=== PATIENT | female | born 1980 | race American Indian/Alaskan Native ===

== ENCOUNTER 2017-10-08 23:20 | Emergency (ER) | payer MEDICARE ==
[2017-10-09] MEDS ORDERED: REGLAN PO ONE (01:56)
[2017-10-09 02:12] LABS: Basophils # (Auto) 0.1 K/mm3 (0.0-0.1); Eosinophils # (Auto) 0.3 K/mm3 (0.0-0.4); Eosinophils % (Auto) 3.2 % (0.0-4.3); Hematocrit 27.2 % (30.3-42.9); Lymphocytes # (Auto) 4.2 K/mm3 (1.2-5.4); Lymphocytes % (Auto) 43.4 % (13.4-35.0); Mean Corpuscular HGB Conc 33 % (30-34); Mean Corpuscular Volume 76 fl (79-97); Monocytes # (Auto) 0.8 K/mm3 (0.0-0.8); Monocytes % (Auto) 8.2 % (0.0-7.3); Platelet Count 256 K/mm3 (140-440); Red Blood Count 3.57 M/mm3 (3.65-5.03)
[2017-10-09 02:22] LABS: Mean Corpuscular Hemoglobin 25 pg (28-32); Red Cell Distribution Width 21.8 % (13.2-15.2)
--- NOTE | 2017-10-09 03:26 | Emergency Department Report ---
HPI - General Chief Complaint: Extremity Problem,Nontraumatic Time Seen by Provider: 10/09/17 01:36 - HPI HPI: 37-year-old female presents to the emergency department from [facility] with a complaint of a few days of swelling to the bilateral feet and ankles, as well as some bilateral leg pain. Patient has a history of hypertension, diabetes, hypothyroidism and has per his history of DVT. She used to be on Xarelto. The patient actually overdosed on this medication a few days ago and that is what led her to being an involuntary admission at [facility]. She denies any skin color change, rash or any recent trauma. She has not taken anything and was not given anything for her symptoms prior to presentation today. ED Past Medical Hx - Past Medical History Previous Medical History?: Yes Hx Hypertension: Yes Hx Diabetes: Yes Hx Deep Vein Thrombosis: Yes (left leg) Hx Pulmonary Embolism: Yes - Surgical History Past Surgical History?: Yes Hx Cholecystectomy: Yes Additional Surgical History: tubal ligation, x3 - Social History Smoking Status: Never Smoker Substance Use Type: None - Medications Home Medications: Home Medications Medication Instructions Recorded Confirmed Last Taken Type Benzocaine/Menthol [Sore Throat 1 each MM 10/09/17 Unknown History Lozenges] Benztropine [Cogentin] 1 mg PO QID 10/09/17 10/09/17 Unknown History Benztropine [Cogentin] 2 mg PO BID 10/09/17 10/09/17 10/08/17 History Diazepam 1 tab PO HS 10/09/17 10/09/17 10/08/17 History Divalproex Sodium [Depakote] 500 mg PO BID 10/09/17 10/09/17 10/08/17 History Eucalyptus/Menthol [Cough Drops] 1 each MM 10/09/17 Unknown History Haloperidol Lactate [Haldol] 5 mg IM TID 10/09/17 10/09/17 Unknown History Haloperidol [Haldol] 5 mg PO TID 10/09/17 10/09/17 Unknown History Ibuprofen [Motrin 800 MG tab] 10/09/17 Unknown History LORazepam [Ativan] 1 mg PO TID PRN 10/09/17 10/09/17 Unknown History Levothyroxine [Synthroid] 100 mcg PO QAM 10/09/17 10/09/17 10/08/17 History Lisinopril [Zestril] 10 mg PO DAILY 10/09/17 10/09/17 10/08/17 History Loratadine [Claritin] 10 mg PO DAILY PRN 10/09/17 10/09/17 Unknown History Milk of Magnesia 30 ml PO DAILY PRN 10/09/17 10/09/17 Unknown History Mylanta 10/09/17 Unknown History OLANzapine (NF) [ZyPREXA (NF)] 5 mg IM Q8HR 10/09/17 10/09/17 Unknown History Olanzapine [Zyprexa] 5 mg PO TID 10/09/17 10/09/17 Unknown History Promethazine HCl [Promethazine INJ] 25 mg IJ 10/09/17 Unknown History Promethazine [Phenergan TAB] 25 mg PO Q6H PRN 10/09/17 10/09/17 Unknown History Rivaroxaban [Xarelto] 20 mg PO QDAY 10/09/17 10/09/17 10/08/17 History Sertraline [Zoloft] 200 mg PO QDAY 10/09/17 10/09/17 10/08/17 History Ziprasidone Mesylate [Geodon] 20 mg IM Q8HR PRN MDD 100mg 10/09/17 10/09/17 Unknown History Ziprasidone [Geodon] 20 mg PO Q8HR PRN 10/09/17 10/09/17 Unknown History cloNIDine [Catapres] 0.1 mg PO Q8HR PRN 10/09/17 10/09/17 Unknown History diphenhydrAMINE [Benadryl] 50 mg IM Q4HR PRN 10/09/17 10/09/17 Unknown History hydrOXYzine PAMOATE [Vistaril] 1 tab PO Q8HR PRN MDD 100mg 10/09/17 10/09/1712/17 History traZODone [Desyrel] 50 mg PO QHS 10/09/17 10/09/17 Unknown History ED Review of Systems ROS: Stated complaint: LEG PAIN/SWELLING Other details as noted in HPI Comment: All other systems reviewed and negative Constitutional: denies: chills, fever Eyes: denies: eye pain, eye discharge, vision change ENT: denies: ear pain, throat pain Respiratory: denies: cough, shortness of breath, wheezing Cardiovascular: edema. denies: chest pain, palpitations Gastrointestinal: denies: abdominal pain, nausea, diarrhea Genitourinary: denies: urgency, dysuria, discharge Musculoskeletal: joint swelling, arthralgia, myalgia Skin: denies: rash, lesions Neurological: denies: headache, weakness, paresthesias Physical Exam - Physical Exam Vital Signs: Vital Signs 10/08/17 23:49 Temperature 97.7 F Pulse Rate 89 Respiratory 18 Rate Blood Pressure 127/75 O2 Sat by Pulse 100 Oximetry Physical Exam: GENERAL: The patient is well-developed well-nourished. HENT: Normocephalic. Atraumatic. Patient has moist mucous membranes. EYES: Extraocular motions are intact. Pupils equal reactive to light bilaterally. Trachea NECK: Supple. Trachea is midline. CHEST/LUNGS: Clear to auscultation. There is no respiratory distress noted. HEART/CARDIOVASCULAR: Regular. There is no tachycardia. There is no murmur. ABDOMEN: Abdomen is soft, nontender. Patient has normal bowel sounds. There is no abdominal distention. SKIN: Skin is warm and dry. There may be some mild nonpitting swelling of the feet and ankles but nothing appreciable in the rest of the lower legs. NEURO: The patient is awake, alert, and oriented. The patient is cooperative. The patient has no focal neurologic deficits. The patient has normal speech. MUSCULOSKELETAL: Mild tenderness to palpation to the bilateral lower extremities. There is no limitation range of motion. There is no evidence of acute injury. ED Course Vital Signs 10/08/17 23:49 Temperature 97.7 F Pulse Rate 89 Respiratory 18 Rate Blood Pressure 127/75 O2 Sat by Pulse 100 Oximetry ED Medical Decision Making - Lab Data Result diagrams: 10/09/17 01:59 10/09/17 01:59 - Radiology Data Radiology results: report reviewed Bilateral lower extremity venous Doppler negative for DVT. - Medical Decision Making This patient coming from a psych facility with complaint of some pain to the bilateral lower extremities and some mild swelling to the feet and ankles. She does have a history of previous DVT. Her story is slightly confusing as she says she has not been taking her anticoagulant but also says that the reason she is at the psych facility is because she attempted to overdose on her anticoagulant. There is a little bit of discomfort to palpation towards the bilateral calf but there is no appreciable swelling or any skin color changes this area. Mild swelling to the feet and ankles. Labs are otherwise unremarkable. Vital signs stable. She has no complaints of shortness of breath. Vital signs stable including being afebrile and no tachycardia or hypoxia. The patient was signed out to my colleague in the morning to follow the lower extremity venous Doppler done that ended up resulting as negative for DVT. She was discharged back to the psychiatric facility to be restarted on her anticoagulant at a normal dosing. - Differential Diagnosis myalgia, DVT, venous stasis, CHF Critical Care Time: No Critical care attestation.: If time is entered above; I have spent that time in minutes in the direct care of this critically ill patient, excluding procedure time. ED Disposition Clinical Impression: Leg pain Qualifiers: Laterality: bilateral Qualified Code(s): M79.604 - Pain in right leg; M79.605 - Pain in left leg Disposition: DC/TX-65 PSY HOSP/PSY UNIT Is pt being admited?: No Condition: Good Instructions: Arthralgia (ED) Additional Instructions: Continue current outpatient medications. Follow up with the primary care doctor for incidental nonemergent laboratory abnormalities. Follow up within the next month. Return to the ER right away with fevers, chills, lethargy, irritability, projectile vomiting, change in mental status, confusion, inability to tolerate liquid feeds. Referrals: PRIMARY CAREMD [Primary Care Provider] - 3-5 Days ERAN MUNOZ MD [Staff Physician] - 3-5 Days
[2017-10-09 04:07] LABS: BUN/Creatinine Ratio 23; Blood Urea Nitrogen 9 mg/dL (7-17); Calcium 9.9 mg/dL (8.4-10.2); Hemolysis Index 10
[2017-10-09] MEDS ORDERED: TORADOL IM ONE (04:16)
--- NOTE | 2017-10-09 10:31 | Event Note ---
Date: 10/09/17 Initial ultrasound results as negative for DVT. Laboratory studies reviewed, and are essentially unremarkable. Incidental thyroid abnormality appreciated, incidental minor anemia appreciated, the patient can follow up with a primary care doctor for this as an outpatient. Her complaint is resolved lower extremity edema and pain. Compartments are soft with appropriate pulses. Patient has had an adequate and thorough and appropriate medical screening exam , she has been in the ER for hours without clinical to conversation, and there does not appeared to be an emergency medical condition at this time and she can follow-up as an outpatient. Vital Signs 10/08/17 10/09/17 10/09/17 23:49 04:40 06:38 Temperature 97.7 F Pulse Rate 89 Respiratory 18 16 18 Rate Blood Pressure 127/75 Blood Pressure [Left] O2 Sat by Pulse 100 100 Oximetry 10/09/17 10/09/17 07:20 07:51 Temperature 97.6 F Pulse Rate 84 Respiratory 18 18 Rate Blood Pressure Blood Pressure 105/60 [Left] O2 Sat by Pulse 96 96 Oximetry Lab Results 10/09/17 10/09/17 10/09/17 Range/Units 01:59 01:59 01:59 WBC 9.6 (4.5-11.0) K/mm3 RBC 3.57 L (3.65-5.03) M/mm3 Hgb 9.0 L (10.1-14.3) gm/dl Hct 27.2 L (30.3-42.9) % MCV 76 L (79-97) fl MCH 25 L (28-32) pg MCHC 33 (30-34) % RDW 21.8 H (13.2-15.2) % Plt Count 256 (140-440) K/mm3 Lymph % (Auto) 43.4 H (13.4-35.0) % [place] % (Auto) 8.2 H (0.0-7.3) % Eos % (Auto) 3.2 (0.0-4.3) % Baso % (Auto) 1.0 (0.0-1.8) % Lymph # 4.2 (1.2-5.4) K/mm3 [place] # 0.8 (0.0-0.8) K/mm3 Eos # 0.3 (0.0-0.4) K/mm3 Baso # 0.1 (0.0-0.1) K/mm3 Seg Neutrophils % 44.2 (40.0-70.0) % Seg Neutrophils # 4.2 (1.8-7.7) K/mm3 D-Dimer 148.31 (0-234) ng/mlDDU Sodium 138 (137-145) mmol/L Potassium 4.0 (3.6-5.0) mmol/L Chloride 102.1 (98-107) mmol/L Carbon Dioxide 21 L (22-30) mmol/L Anion Gap 19 mmol/L BUN 9 (7-17) mg/dL Creatinine 0.4 L (0.7-1.2) mg/dL Estimated GFR > 60 ml/min BUN/Creatinine Ratio 23 % Glucose 110 H (65-100) mg/dL Calcium 9.9 (8.4-10.2) mg/dL Total Creatine Kinase (30-135) units/L NT-Pro-B Natriuret Pep (0-450) pg/mL TSH (0.270-4.200) mlU/mL 10/09/17 10/09/17 Range/Units 01:59 03:37 WBC (4.5-11.0) K/mm3 RBC (3.65-5.03) M/mm3 Hgb (10.1-14.3) gm/dl Hct (30.3-42.9) % MCV (79-97) fl MCH (28-32) pg MCHC (30-34) % RDW (13.2-15.2) % Plt Count (140-440) K/mm3 Lymph % (Auto) (13.4-35.0) % [place] % (Auto) (0.0-7.3) % Eos % (Auto) (0.0-4.3) % Baso % (Auto) (0.0-1.8) % Lymph # (1.2-5.4) K/mm3 [place] # (0.0-0.8) K/mm3 Eos # (0.0-0.4) K/mm3 Baso # (0.0-0.1) K/mm3 Seg Neutrophils % (40.0-70.0) % Seg Neutrophils # (1.8-7.7) K/mm3 D-Dimer (0-234) ng/mlDDU Sodium (137-145) mmol/L Potassium (3.6-5.0) mmol/L Chloride (98-107) mmol/L Carbon Dioxide (22-30) mmol/L Anion Gap mmol/L BUN (7-17) mg/dL Creatinine (0.7-1.2) mg/dL Estimated GFR ml/min BUN/Creatinine Ratio % Glucose (65-100) mg/dL Calcium (8.4-10.2) mg/dL Total Creatine Kinase 83 (30-135) units/L NT-Pro-B Natriuret Pep 10.79 (0-450) pg/mL TSH 8.890 H (0.270-4.200) mlU/mL
[2017-10-09 10:36] VITALS: BP 100/60
== END 2017-10-09 11:46 ==
LOC: ED 23:20
DX: M79.604 Pain in right leg (principal); M79.605 Pain in left leg; R60.0 Localized edema; I10 Essential (primary) hypertension; E11.9 Type 2 diabetes mellitus without complications; Z86.718 Personal history of other venous thrombosis and embolism; Z88.8 Allergy status to other drugs, medicaments and biological substances; M79.89 Other specified soft tissue disorders
CPT/HCPCS: 36415; 80048; 82550; 83880; 84443; 85025; 85379; 93970; 96372; 99284; J1885